=== PATIENT | female | born 2000 | race African-American/Black ===

== ENCOUNTER 2020-01-23 22:00 | Emergency (ER) | payer OTHER ==
[~2020-01-23] VITALS: Ht 144.8 cm; Wt 49.9 kg
[2020-01-23 22:10] VITALS: BP 113/77
--- NOTE | 2020-01-23 22:11 | NUR ---
ED Nurse Note: Patient walked in to ED from home after stepping on a nail on her right foot x couple hours ago. Pt unable to recall last tetanus shot. Denies pain. Able to walk with steady gait.
[2020-01-23] MEDS ORDERED: Neosporin Oint Ud Pkt TOPIC ONE (22:15)
[2020-01-23] MEDS ORDERED: Tetanus/Diptheria/Pertussis IM ONE (22:15)
[2020-01-23] MEDS ORDERED: CEPHALEXIN500 MG ORAL (22:17)
--- NOTE | 2020-01-23 22:18 | Emergency Room Report ---
History of Present Illness General Chief Complaint: Puncture Wound Source: Patient Present Illness HPI This a 19-year-old female with no past medical history. She presents with chief complaint of a puncture wound to the right heel of her foot. She was wearing in stock type of shoes and a nail punctured through the opening of her shoe and hitting the back of her right heel. This occurred about couple hours ago. Minimal pain. Minimal bleeding. No other injury. Last tetanus was about 7 8 years ago. No other complaint. Allergies: Coded Allergies: No Known Allergies (Unverified , 01/23/20) COVID-19 Screening Contact w/high risk pt: No Recent Travel to affected area: No Experienced COVID-19 symptoms?: No COVID-19 Testing performed [employer]: No Patient History Past Medical History: see triage record, old chart reviewed Past Surgical History: none Pertinent Family History: none Social History: Denies: smoking Now: No Immunizations: other Reviewed Nursing Documentation: PMH: Agreed; PSxH: Agreed Nursing Documentation-PMH Past Medical History: No Stated History Review of Systems Eye: Denies: eye pain, blurred vision ENT: Denies: ear pain, nose congestion, throat swelling Respiratory: Denies: cough, shortness of breath Cardiovascular: Denies: chest pain, palpitations Gastrointestinal: Denies: abdominal pain, diarrhea, nausea, vomiting Musculoskeletal: Denies: back pain, joint pain Skin: Denies: rash Neurological: Denies: headache, numbness Endocrine: Denies: increased thirst, increased urine Hematologic/Lymphatic: Denies: easy bruising All Other Systems: negative except mentioned in HPI Physical Exam Vital Signs Date Time Temp Pulse Resp B/P (MAP) Pulse Ox O2 Delivery O2 Flow Rate FiO2 01/23/20 22:07 99.0 76 18 113/77 (89) 99 Room Air Vitals normal Sp02 EP Interpretation: reviewed, normal General Appearance: well appearing, no apparent distress, alert Head: normocephalic, atraumatic Eyes: bilateral eye PERRL, bilateral eye EOMI ENT: hearing grossly normal, normal pharynx Neck: full range of motion, supple, no meningismus Respiratory: chest non-tender, lungs clear, normal breath sounds Cardiovascular #1: regular rate, rhythm, no murmur Gastrointestinal: normal bowel sounds, non tender, no mass, no organomegaly, no bruit, non-distended Musculoskeletal: back normal, normal range of motion, gait/station normal, other - Puncture wound to the right heel just below the attachment of the Achilles tendon Psychiatric: mood/affect normal Medical Decision Making Diagnostic Impression: Primary Impression: Puncture wound ER Course Patient presents with a puncture wound to the heel. Likely, it did not through her shoe. There is no deep involvement or tendon involvement. Will discharge home. Tetanus updated here. Last Vital Signs Date Time Temp Pulse Resp B/P (MAP) Pulse Ox O2 Delivery O2 Flow Rate FiO2 01/23/20 22:10 99.0 76 18 113/77 99 Room Air Status: improved Disposition: HOME, SELF-CARE Condition: Stable Scripts Cephalexin* (KEFLEX*) 500 Mg Capsule 500 MG ORAL TID, #21 CAP Prov: Patrick Becerril MD 01/23/20 Patient Instructions: Puncture Wound Additional Instructions: Keep wound clean. Clean first with hydroperoxide and apply antibiotic ointment. Follow-up with your doctor in 7 days. Return if symptoms worsen. Patrick Becerril MD Jan 23, 2020 22:18
[2020-01-23 22:24] VITALS: BP 113/77
--- NOTE | 2020-01-23 22:24 | NUR ---
ED Nurse Note: Pt cleared by ERMD for discharge. DC instructions/prescription was given and explained to pt and verbalized understanding of teachings. All medical deviecs such as ID band removed. Pt is AAO x4, ambulatory and left with all personal belongings.
== END 2020-01-23 22:24 | disposition home or self-care (01) ==
LOC: EMR 22:17
DX: S91.331A Puncture wound without foreign body, right foot, initial encounter (principal); Z23 Encounter for immunization; W45.0XXA Nail entering through skin, initial encounter; Y92.9 Unspecified place or not applicable
CPT/HCPCS: 90471; 90715; 99282